=== PATIENT | male | born 1995 | race American Indian/Alaskan Native ===

== ENCOUNTER 2018-05-06 18:52 | Emergency (ER) | payer BC ==
[2018-05-06 18:58] VITALS: BP 126/87; PULSE 106; RESP 20; TEMP 98.2; O2SAT 100
--- NOTE | 2018-05-06 20:04 | C.PDOC ---
History Of Present Illness 23 year old male presents to ED for evaluation of left fifth finger after accidentally closing it in the trunk door last night. Notes "The very tip feels numb." Time Seen by Provider: 05/06/18 18:58 Chief Complaint (Nursing): Abnormal Skin Integrity History Per: Patient History/Exam Limitations: no limitations Onset/Duration Of Symptoms: Days Current Symptoms Are (Timing): Still Present Past Medical History Reviewed: Historical Data, Nursing Documentation, Vital Signs Vital Signs: Last Vital Signs Temp 98.2 F 05/06/18 18:54 Pulse 106 H 05/06/18 18:54 Resp 20 05/06/18 18:54 BP 126/87 05/06/18 18:54 Pulse Ox 100 05/06/18 18:54 Surgical History: No Surg Hx Family History: States: No Known Family Hx - Social History Hx Alcohol Use: Yes Hx Substance Use: No - Immunization History Hx Tetanus Toxoid Vaccination: Yes Hx Influenza Vaccination: No Hx Pneumococcal Vaccination: No Review Of Systems Constitutional: Negative for: Fever, Chills Musculoskeletal: Positive for: Other (Pain to left fifth finger.) Neurological: Negative for: Weakness Physical Exam - Physical Exam Appears: Non-toxic, No Acute Distress Skin: Warm, Dry, Other ((+) 1 cm laceration diagonally through the nail bed, no active bleeding, no evidence of nail bed laceration) Head: Atraumatic, Normacephalic Eye(s): bilateral: Normal Inspection, EOMI Nose: Normal Oral Mucosa: Moist Neck: Normal ROM, Supple Chest: Symmetrical Respiratory: No Accessory Muscle Use, Other (Speaking in full sentences.) Extremity: Normal ROM, Tenderness (TTP to the distal aspect of the finger), Capillary Refill (<2 sec) Pulses: Left Radial: Normal, Right Radial: Normal Neurological/Psych: Oriented x3, Normal Speech, Other (No focal deficits.) ED Course And Treatment O2 Sat by Pulse Oximetry: 100 (RA) Pulse Ox Interpretation: Normal - Other Rad Finger XR X-Ray: Interpreted by Me, Viewed By Me Interpretation: (+) tuft fx Progress Note: X-ray to left hand ordered and reviewed. Discussed with pt concern for delayed closure (over 18hrs). Area was irrigated, cleansed and steristrips applied. Discussed concern for wound infection and instructed wound check in 2 days. Instructed to follow up with hand specialist in 2 days for re- evaluation. Laceration - Laceration Repair left 5th finger Wound Length (In cm): 1 Description Of Wound: Linear Wound Cleansed With: Betadine, Sterile Saline Wound Examination: Irrigated With Saline, No FB With Wound Exploration Wound Closure: Steri Strips, Skin Glue Disposition - Disposition Referrals: Keo Wynne MD [Staff Provider] - Disposition: HOME/ ROUTINE Disposition Time: 20:23 Condition: STABLE Additional Instructions: Wound care in 2 days. Follow up with the hand specialist in 1-2 days. Return to ER if symptoms persist or worsen. Prescriptions: Cephalexin [cephalexin] 500 mg PO TID #21 cap Instructions: Finger Fracture (DC) Forms: [employer] ([place]yan) - Clinical Impression Clinical Impression: Finger fracture, left, Finger laceration - PA / MEDICAL TECHNICIAN / Resident Statement MD/DO has reviewed & agrees with the documentation as recorded. - Scribe Statement The provider has reviewed the documentation as recorded by the Scribe Antonio Regan All medical record entries made by the Brandan were at my direction and personally dictated by me. I have reviewed the chart and agree that the record accurately reflects my personal performance of the history, physical exam, medical decision making, and the department course for this patient. I have also personally directed, reviewed, and agree with the discharge instructions and disposition.
[2018-05-06] MEDS ORDERED: Tdap Vaccine 0.5 ml Vial (10-64 yrs) IM ONE (20:21)
[2018-05-06] MEDS ORDERED: Tetanus/Diphtheria Toxoids 0.5 ml Syringe IM ONE (20:33)
--- NOTE | 2018-05-07 07:12 | RAD ---
Left hand 5th digit three views History: Injury. Comparison: None available. Findings: On the oblique view, there is a transverse lucency through the distal tuft of the 5th distal phalanx concerning for fracture. Clinical correlation. Impression: On the oblique view, there is a transverse lucency through the distal tuft of the 5th distal phalanx concerning for fracture. Clinical correlation.
== END 2018-05-06 20:37 | disposition home or self-care (01) ==
LOC: C.ER 18:52
DX: S62.637A Displaced fracture of distal phalanx of left little finger, initial encounter for closed fracture (principal); W23.0XXA Caught, crushed, jammed, or pinched between moving objects, initial encounter; Y92.9 Unspecified place or not applicable; Z23 Encounter for immunization